=== PATIENT | female | born 1965 | race Caucasian/White ===

== ENCOUNTER 2017-01-09 12:36 | Outpatient (CLI) | payer OTHER ==
--- NOTE | 2017-01-14 18:30 | MMO ---
BILATERAL SCREENING MAMMOGRAM: DATE: 01/09/2017 COMPARISON: No prior comparisons. Interpreted as a baseline exam. The exam is interpreted with the assistance of computer-aided detection. FINDINGS: There is heterogeneously dense breast parenchyma bilaterally which limits sensitivity of mammography and could obscure underlying pathology. There is no evidence of dominant mass, suspicious clusteri ng of microcalcifications, or architectural distortion. Benign-appearing punctate calcifications ar e seen bilaterally. IMPRESSION: BIRADS 2 - Benign findings. Annual screening mammography recommended. POS: CHRIS
== END 2017-01-09 12:37 | disposition home or self-care (01) ==
LOC: SCSMAMMO 12:36
PROVIDERS: ATTEND Obstetrics & Gynecology
DX: Z12.31 Encounter for screening mammogram for malignant neoplasm of breast (principal)
CPT/HCPCS: 77067; G0202

== ENCOUNTER 2019-06-22 15:48 | Outpatient (CLI) | payer OTHER ==
--- NOTE | 2019-06-22 16:26 | MMO ---
Bilateral MAMMO Bilat Screen [id number]. CLINICAL HISTORY: Patient is 53 years old and is seen for screening. VIEWS: The views performed were: bilateral craniocaudal with tomosynthesis and bilateral mediolateral oblique with tomosynthesis. FILMS COMPARED: The present examination has been compared to a prior imaging study performed at [facility] on 01/09/2017. This study has been interpreted with the assistance of computer-aided detection. MAMMOGRAM FINDINGS: The breasts are heterogeneously dense, which could obscure a lesion on mammography. There are stable benign appearing calcifications seen in both breasts. There are no suspicious masses, suspicious calcifications, or new areas of architectural distortion. IMPRESSION: THERE IS NO MAMMOGRAPHIC EVIDENCE OF MALIGNANCY. A ROUTINE FOLLOW-UP MAMMOGRAM IN 1 YEAR IS RECOMMENDED. THE RESULTS OF THIS EXAM WERE SENT TO THE PATIENT. ACR BI-RADS Category 2 - Benign finding MAMMOGRAPHY NOTE: 1. A negative mammogram report should not delay a biopsy if a dominant of clinically suspicious mass is present. 2. Approximately 10% to 15% of breast cancers are not detected by mammography. 3. Adenosis and dense breasts may obscure an underlying neoplasm. Reported by: SAMM WALL MD Electonically Signed: [id number]
== END 2019-06-22 15:49 | disposition home or self-care (01) ==
LOC: BICMAMMO 15:48
PROVIDERS: ATTEND Obstetrics & Gynecology
DX: Z12.31 Encounter for screening mammogram for malignant neoplasm of breast (principal)
CPT/HCPCS: 77063; 77067

== ENCOUNTER 2020-03-09 15:26 | Emergency (ER) | payer OTHER ==
[2020-03-09] MEDS ORDERED: Ketorolac Tromethamine 30 MG/ML VIAL ONE (16:03)
[2020-03-09] MEDS ORDERED: Acetaminophen 500 MG TAB ONE (16:03)
[2020-03-09 16:13] LABS: #Lymphocytes 0.5 thou/uL (1.20-3.40); #Monocytes 0.4 thou/uL (0.11-0.59); #Neutrophils 8.6 thou/uL (1.40-6.50); %Basophils 0.2 % (0.0-1.0); %Eosinophils 0.4 % (0.0-10.0); %Lymphocytes 5.2 % (21.0-51.0); %Monocytes 4.3 % (0.0-10.0); %Neutrophils 89.9 % (42.0-75.0); Hemoglobin 14.3 g/dL (12.0-16.0); Mean Corpuscular HGB CONC 35.3 g/dL (32.0-36.0); Mean Corpuscular Hemoglobin 31.1 pg (27.0-31.0); Mean Platelet Volume 6.8 fL (7.4-10.4); Platelet Count 294 thou/uL (130-400); RBC Distribution Width 12.3 % (11.5-14.5); Red Blood Cell (RBC) Count 4.59 mill/uL (4.20-5.40); White Blood Cell (WBC) Count 9.5 thou/uL (4.8-10.8)
[2020-03-09 16:43] LABS: Anion Gap 14 mmol/L (10-20); BUN (Urea Nitrogen) 15 mg/dL (9.8-20.1); Calc. Creatinine Clearance 0 mL/min (70-130); Carbon Dioxide 24 mmol/L (22-29); Chloride 104 mmol/L (98-107); Estimated GFR-MDRD 71; Potassium 3.6 mmol/L (3.5-5.1); Sodium 138 mmol/L (136-145)
[2020-03-09 16:44] LABS: ALT (SGPT) 23 U/L (8-55); AST (SGOT) 18 U/L (5-34); Albumin 4.2 g/dL (3.5-5.0); Alkaline Phosphatase 75 U/L (40-110); Bilirubin, Total 0.8 mg/dL (0.2-1.2); Globulin 3.1 g/dL (2.4-3.5); Glucose 95 mg/dL (70-105); Protein, Total 7.3 g/dL (6.0-8.3)
[2020-03-09 16:52] LABS: Bilirubin Negative (Negative); Blood, Urine Negative (Negative); Clarity Clear (Clear); Glucose, Urine (Dipstick) Normal (Negative); Ketone, Urine Negative (Negative); Leukocyte Negative Leu/uL (Negative); Nitrite Negative (Negative); Protein, Urine (Dipstick) Negative (Neg-Trace); Specific Gravity, Urine 1.007 (1.002-1.036); Urobilinogen Normal mg/dL (Less than 2); pH, Urine 7.5 (5.0-9.0)
--- NOTE | 2020-03-09 17:20 | CT ---
CT ABDOMEN AND PELVIS WITHOUT CONTRAST: 03/09/20 HISTORY: 54-year-old female with bilateral flank pain. Patient just finishing antibiotic treatment for pyelone phritis. FINDINGS: Absence of oral and IV contrast reduces the sensitivity of the exam particularly for evaluation of so lid organs and bowel. The lung bases are clear. No free air or free fluid is seen in the abdomen or pelvis. No calcified ga llstones are seen. No calculi are seen in the kidneys, ureters or urinary bladder. No hydroureteronephrosis is noted on either side. No perinephric inflammatory changes are seen. The uterus and ovaries are present. The small bowel loops are not abnormally dilated. There is coloni c diverticulosis without diverticulitis. There is no evidence of appendicitis. There are vascular taye cifications without evidence of aneurysmal dilatation of the abdominal aorta. There are degenerative changes in the spine. A tiny fat containing umbilical hernia is noted. IMPRESSION: 1. No CT evidence of urinary tract calculi or obstruction. 2. Colonic diverticulosis. POS: OFF
== END 2020-03-09 19:01 | disposition home or self-care (01) ==
LOC: ERS 15:26
DX: R50.9 Fever, unspecified (principal); G43.909 Migraine, unspecified, not intractable, without status migrainosus
CPT/HCPCS: 36415; 74176; 80053; 81003; 83605; 85025; 87040; 87086; 93005; 96365; 96375; J1885; J1956